=== PATIENT | female | born 1975 | race Caucasian/White ===

== ENCOUNTER → 2016-10-24 | Outpatient (CLI) | payer BC ==
--- NOTE | 2016-10-24 10:28 | MM ---
Reason for exam: screening (asymptomatic). Baseline mammogram. History: Took hormonal contraceptives beginning at age 15. Physical Findings: Nurse did not find any significant physical abnormalities on exam. MG 3D Screening Mammo W/Cad Bilateral CC and MLO view(s) were taken. The breast tissue is extremely dense which could obscure a lesion on mammography. These results were verbally communicated with the patient and result sheet given to the patient on 10/24/16. ASSESSMENT: Benign, BI-RAD 2 RECOMMENDATION: Routine screening mammogram of both breasts in 1 year.
== END | disposition home or self-care (01) ==
LOC: RADMAMWWP 09:27
PROVIDERS: ATTEND Obstetrics & Gynecology
DX: Z12.31 Encounter for screening mammogram for malignant neoplasm of breast (principal)
CPT/HCPCS: 77063; G0202

== ENCOUNTER → 2017-05-16 | Outpatient (CLI) | payer BC ==
[2017-05-16 12:53] LABS: Anion Gap 10 mmol/L; Blood Urea Nitrogen 16 mg/dL (7-17); Carbon Dioxide 23 mmol/L (22-30); Chloride 107 mmol/L (98-107); Glucose 106 mg/dL (74-99); Non-African American GFR(MDRD) >60 (>60 ml/min/1.73 sqM); Potassium 3.9 mmol/L (3.5-5.1); Sodium 140 mmol/L (137-145)
== END | disposition home or self-care (01) ==
LOC: LABWHC1 12:06
PROVIDERS: ATTEND Obstetrics & Gynecology
DX: Z01.812 Encounter for preprocedural laboratory examination (principal); N83.291 Other ovarian cyst, right side; N92.0 Excessive and frequent menstruation with regular cycle; N80.0 Endometriosis of uterus
CPT/HCPCS: 36415; 80051; 82565; 82947; 84520; 86850; 86900; 86901; 87086

== ENCOUNTER → 2017-05-21 | Outpatient (CLI) | payer BC ==
[2017-05-21 13:23] LABS: CH 31.3; CHCM 32.7; HCT 40.7 % (34.0-46.0); MCH 30.9 pg (25.0-35.0); MCV 96.4 fL (80.0-100.0); Mean Platelet Volume 7.3; RBC 4.22 m/uL (3.80-5.40)
== END | disposition home or self-care (01) ==
LOC: LABWHC1 12:24
PROVIDERS: ATTEND Obstetrics & Gynecology
DX: Z01.812 Encounter for preprocedural laboratory examination (principal)
CPT/HCPCS: 36415; 85027

== ENCOUNTER 2017-05-26 05:56 | Day surgery (SDC) | payer BC ==
[2017-05-20 11:13] VITALS: BMI 33.5
--- NOTE | 2017-05-22 15:52 | HP ---
HISTORY AND PHYSICAL REASON FOR ADMISSION: Surgery on Friday, May 26, 2017. HISTORY OF PRESENT ILLNESS: Deanne is a 41-year-old 2, para 2-0-0-2, who presented to the office initially with complaints of irregular cycles, but with very heavy flow including clots. She underwent an ultrasound which demonstrated a complex left ovarian cyst in the range of 2 cm with some papillary projections noted. She did undergo Federica testing which was negative. Followup ultrasound demonstrated it to be persistent in nature. She also complains of mild dysmenorrhea but her largest complaint is of the degree of menorrhagia which interrupts her normal lifestyle. As a result, we discussed different potential options for treatment and, as she wishes to have the cyst removed entirely and has some left-sided pain as well as deal with the ongoing menorrhagia, she has requested definitive therapy with hysterectomy. Examination bears out that she is really only a candidate for an open or Da Chio approach and, as we wish to remove the left ovary/ovarian cyst, Da Chio approach makes further sense. She therefore is booked for the Da Chio robotically assisted laparoscopic hysterectomy with left salpingo-oophorectomy and right salpingectomy as well as diagnostic cystoscopy. PAST MEDICAL HISTORY: No significant medical history. PAST SURGICAL HISTORY: No history of previous surgery. SOFTWARE QUALITY ANALYST HISTORY: 2, para 2-0-0-2 with 2 term vaginal deliveries without complications. Method of contraception is vasectomy. Gynecologic history is unremarkable with no history of any infections to include STDs. FAMILY HISTORY: Noncontributory. SOCIAL HISTORY: The patient is and works as a teacher. She is a nonsmoker and denies any significant alcohol or any other social concerns. CURRENT MEDICATIONS: Include Lysteda 650 mg, 2 tablets 3 times daily on heavy days of cycle (has failed). She also takes a multivitamin daily. ALLERGIES: No known drug allergies. REVIEW OF SYSTEMS: Is confined to history of present illness. PHYSICAL EXAMINATION: Vital signs are stable. The patient is afebrile. In general, this is a well- developed, moderately obese white female in no acute distress. HEENT demonstrates PERRLA, EOMI, her oropharynx is clear. NECK: Supple without adenopathy and the thyroid is normal to palpation. Her heart has a regular rhythm and rate without murmur. Her lungs are clear to auscultation bilaterally in all sexton. Her abdomen is nondistended, has normoactive bowel sounds, soft, nontender, without any palpable masses, hepatosplenomegaly, or hernias. Her extremities are without any cyanosis, clubbing, or significant edema. They are nontender to palpation bilaterally. Pelvic examination demonstrates normal external genitalia and BUS with normal vaginal mucosa and cervix. There is no cervical motion tenderness. The uterus is approximately 5 weeks in size, acutely retroverted, mobile, nontender, and with a possible posterior fundal fibroid. The adnexa were normal. Nontender without mass bilaterally. ASSESSMENT AND PLAN: Menorrhagia, persistent complex left ovarian cyst, and possible adenomyosis: The patient has requested definitive therapy with hysterectomy. As we wish to insure that we are able to remove the left ovarian cyst, we will proceed with the Da Chio robotically assisted laparoscopic hysterectomy with left salpingo-oophorectomy and right salpingectomy to be followed by diagnostic cystoscopy. The risks and complications of this procedure have been thoroughly discussed including the risks for bleeding, bleeding requiring transfusion, infection, and injury to local structures, which specifically include the bowel, bladder, and ureters. I also spent time to specifically discussing the risks unique to Da Chio surgery to include both thermal injury and vaginal cuff dehiscence. She has understood all these concerns and agreed to proceed. We are scheduled for the above procedure on the morning of May 26, 2017. MMODL / IJN: [id number] /
[~2017-05-26 05:56] MED LIST: DEXAMETHASONE SOD PHOSPHATE 10 MG/ML 1 ML VIAL IV ONE; HYDROmorphone 0.5 MG/0.5 ML SYRINGE IVP PRN; LACTATED RINGERS 1,000 ML IV SCH; MIDAZOLAM 2 MG/2 ML VIAL IV PRN; ONDANSETRON 4 MG/2 ML VIAL IVP ONE; SCOPOLAMINE 1.5MG/72HR PATCH TRANSDERM ONE; ceFAZolin IN SWFI 2 GM/20 ML SYRINGE IVP ONE
[2017-05-26] MEDS ORDERED: LIDOCAINE 1% 20 ML VIAL (10MG/ML) FOR IV START INTRADERMA ONE ×2 (06:23→06:32)
[2017-05-26] MEDS ORDERED: BUPIVACAINE (PF) 0.5% 30 ML VIAL SQ ONE (07:07)
[2017-05-26] MEDS ORDERED: GLYCOPYRROLATE 0.2 MG/ML 2 ML VIAL ONE (07:27)
[2017-05-26] MEDS ORDERED: PROPOFOL 10 MG/ML 20 ML VIAL IV ONE (07:27)
[2017-05-26] MEDS ORDERED: LIDOCAINE 1% INJ 10MG/ML (20 ML MDV) ONE (07:27)
[2017-05-26] MEDS ORDERED: HYDROmorphone (PF) 1 MG/ML ONE (07:27)
[2017-05-26] MEDS ORDERED: ROCURONIUM BROMIDE 10 MG/ML 10 ML VIAL IV ONE (07:27)
[2017-05-26] MEDS ORDERED: NEOSTIGMINE 1 MG/ML 10 ML VIAL ONE (07:27)
[2017-05-26] MEDS ORDERED: MIDAZOLAM 2 MG/2 ML VIAL ONE (07:27)
[2017-05-26] MEDS ORDERED: SUCCINYLCHOLINE CHLORIDE 100 MG/5 ML SYR IV ONE (07:27)
[2017-05-26] MEDS ORDERED: KETOROLAC 30 MG/ML 1 ML VIAL ONE (07:27)
[2017-05-26] MEDS ORDERED: fentaNYL (PF) 50 MCG/ML 2 ML AMP ONE (07:27)
[2017-05-26] MEDS ORDERED: ONDANSETRON 4 MG/2 ML VIAL IVP PRN (09:27)
[2017-05-26] MEDS ORDERED: METOCLOPRAMIDE 5 MG/ML 2 ML VIAL IVP PRN (09:27)
[2017-05-26] MEDS ORDERED: Acetaminophen-Codeine 300-30mg TAB PO PRN (09:27)
[2017-05-26] MEDS ORDERED: IBUPROFEN 600 MG TAB PO PRN (09:27)
[2017-05-26] MEDS ORDERED: diphenhydrAMINE 50 MG/ML 1 ML VIAL IVP PRN (09:27)
[2017-05-26] MEDS ORDERED: SIMETHICONE 80 MG CHEWABLE PO PRN (09:27)
--- NOTE | 2017-05-26 09:43 | P.OP ---
Date of Procedure: 05/26/17 Preoperative Diagnosis: #1. Menorrhagia #2. Persistent complex left ovarian cyst #3. Possible adenomyosis Postoperative Diagnosis: Same Procedure(s) Performed: #1. Da Chio robotically assisted laparoscopic hysterectomy #2. Bilateral salpingectomy #3. Left oophorectomy #4. Diagnostic cystoscopy Anesthesia: DILIP Surgeon: Rajesh Langford Health Clinician #1: Rocio Das Estimated Blood Loss (ml): 50 IV fluids (ml): 1,100 Urine output (ml): 300 Pathology: other (Uterus, bilateral fallopian tubes, and left ovary) Condition: stable Disposition: PACU Operative Findings: Preoperative pelvic examination demonstrated a roughly 5-6 week midplane is anteverted normal uterus with normal adnexa bilaterally. Intraoperatively the uterus was larger than anticipated. The bilateral ovaries appeared normal as did the fallopian tubes. The uterus sounded to 10 cm. Following the hysterectomy, the the cystoscopic and the laparoscopic views of the bladder demonstrated no evidence of damage from either side and the bilateral ureteral orifices were seen peristalsing and releasing urine. Description of Procedure: The patient was prepped and draped in usual fashion after general endotracheal anesthesia was administered by the anesthesiologist. A weighted speculum was placed and the anterior lip of the cervix grasped with single-tooth tenaculum. Uterus was sounded to 10 cm allowing for selection of an 8 mm uterine manipulator. The cervix measured to just under 3 cm and a 3 cm Taras cup was selected. Surgical stay sutures were placed from 10:00 to 8:00 and 2:00 to 4: 00 at the cervicovaginal junction into the body of the cervix and tied down. They were then threaded through the Taras cup on the Sola device. The Taras cup and rooming device were then placed the in standard fashion without difficulty and the stay sutures tied down to the Taras cup. A Villalobos catheter was placed and the speculum was removed. Attention was turned to the abdomen where a site was selected approximate 10 cm above the fundus of the uterus and pushed cephalically. The site was approximately 2 cm above the umbilicus in the midline. An 8 mm incision was made in the transverse plane allowing insertion of a 5 mm optical trocar under direct visualization without difficulty. A pneumoperitoneum was established and a site selected approximately 10-12 cm lateral and 3-5 cm the below the optical port on the patient's left side where an 8 mm incision was made in the transverse plane allowing insertion of an 8 mm da Chio trocar under direct visualization without difficulty. The between the 2 was then bisected and a site selected approximately 2-3 cm above the optical port where a roughly 10 mm incision was made in the transverse plane allowing insertion of a 10 mm assistance port under direct vision station without difficulty. A similar da Chio port was placed in the right lower quadrant. There was, on the peritoneal surface, a mild filmy adhesion from the omentum which was left in place. The optical trocar without was removed after placing the scope in a lateral port upon insertion of the da Chio optical port under direct visualization without difficulty. The robot was then brought to the patient and docked standardly. The right arm was the loaded with a monopolar cautery scissors on the left arm was loaded with a [place] bipolar cautery forceps. The power was then applied. I then presented to the console and began the procedure the by removing the right fallopian tube from the overlying ovary. The utero-ovarian ligament was cauterized and cut as well allowing removal of the entire right fallopian tube with the specimen. Cautery and cutting were carried through the round ligament on that side allowing the start of development of the bladder flap. The uterine vessels were noted after some skeletonization and were cauterized with the bipolar cautery. Attention was then turned to the left side where the entire left adnexa was elevated. The infundibulopelvic ligament was cauterized and cut. Serial bites were taken with cautery followed by cutting with the monopolar cautery scissors underneath the fallopian tube to include both the left ovary and tube with the specimen. This was carried through the round ligament as noted on the other side. The bladder flap was then further developed across the midline and the bladder reflected distally. Further skeletonization demonstrated the left side vascular pedicle which was cauterized with the [place] and then cut with the month for cautery scissors. Once the vasculature was controlled, further tension was placed on the bladder flap which was further reflected distally. Uterus was then anteverted and the Taras cup identified and the posterior cul-de- sac. This is opened sharply using the monopolar cautery scissors. Once the cup was identified, the dissection was carried around on the margin of the Taras cup to the uterine vasculature and through it with bipolar cautery used where necessary. Once through the uterine vasculature bilaterally, the uterus was retroverted and the incisions connected on the front side after ensuring that the bladder was well out of the way. The uterus was then removed into the vagina. The monopolar cautery scissors was replaced with a laparoscopic suturing device. The vaginal cuff was closed with a running closure using 0 Stratafix. Release of pressure in the abdomen demonstrated no ongoing bleeding from any site. Thorough suction irrigation was carried out and all sites were noted to be hemostatic. I then returned to the patient removed the Villalobos catheter allowing placement of a diagnostic cystoscope. The bladder was filled with sterile water and the dome of the bladder examined both cystoscopically and laparoscopically with no evidence of any damage or leaking. The bilateral ureteral orifices were seen with peristaltic urine demonstrated from both. The scope was removed and the Villalobos catheter replaced. The robot was undocked and the ports removed. The incisions were closed with interrupted subcuticular stitches of 4-0 Monocryl followed by Steri-Strips with Mastisol. Estimated blood loss for the case was approximately 50 mL. There were no complications. All sponge, instrument, and needle counts were correct. The patient tolerated the procedure well and proceeded to the recovery room in stable condition.
[2017-05-26] MEDS: LACTATED RINGERS 1,000 ML IV SCH ×3 (11:53→22:22)
[2017-05-26] MEDS: KETOROLAC 30 MG/ML 1 ML VIAL IVP PRN ×2 (13:32→22:19)
[2017-05-26] MEDS: Acetaminophen-Codeine 300-30mg TAB PO PRN (18:51)
[2017-05-26] MEDS: SENNOSIDES-DOCUSATE SODIUM 1 EACH TAB PO SCH (22:19)
[2017-05-27] MEDS: Acetaminophen-Codeine 300-30mg TAB PO PRN (01:19)
[2017-05-27 06:49] LABS: Basophils % (A) 0 %; Eosinophils # (A) 0.1 k/uL (0-0.7); Eosinophils % (A) 2 %; HCT 34.6 % (34.0-46.0); HDW 2.55; HGB 11.6 gm/dL (11.4-16.0); Luc # (Auto) 0.06; Luc % (Auto) 1; Lymphocytes # (A) 0.9 k/uL (1.0-4.8); Lymphocytes % (A) 18 %; MCH 31.6 pg (25.0-35.0); MCHC 33.4 g/dL (31.0-37.0); MCV 94.6 fL (80.0-100.0); Mean Platelet Volume 7.5; Monocytes # (A) 0.3 k/uL (0-1.0); Monocytes % (A) 6 %; Neutrophils # (A) 3.8 k/uL (1.3-7.7); Neutrophils % (A) 73 %; RBC 3.66 m/uL (3.80-5.40); RDW 13.5 % (11.5-15.5); WBC 5.3 k/uL (3.8-10.6); WBC (Perox) 5.57
[2017-05-27] MEDS: KETOROLAC 30 MG/ML 1 ML VIAL IVP PRN ×2 (07:15→13:14)
[2017-05-27] MEDS: SENNOSIDES-DOCUSATE SODIUM 1 EACH TAB PO SCH (07:15)
[2017-05-27 08:32] VITALS: BP 124/74; PULSE 70; RESP 19; TEMP 97.2
--- NOTE | 2017-05-27 08:32 | P.DS ---
Providers Expected date of discharge: 05/27/17 Attending physician: Rajesh Langford Primary care physician: Ryan Costa - Discharge Diagnosis(es) (1) Complex cyst of left ovary Current Visit: Yes Status: Acute (2) Menorrhagia Current Visit: Yes Status: Acute Hospital Course: The patient is a 41-year-old 2 para 2 scissors or 2 who presented to the office with a complaint of irregular and heavy cycles. She underwent ultrasound which demonstrated also a complex left ovarian cyst approximately 2 cm with some internal papillary projections. This was followed over the course of 1-2 months and remained persistent. Given both the somewhat concerning appearance of the cyst, although it was small, and her uterine symptoms with heavy and irregular bleeding, she requested definitive therapy with hysterectomy. Her examination made her candidate only for open or da Chio approach. She therefore was taken the operating room for da Chio robotically assisted laparoscopic hysterectomy, bilateral salpingectomy, left oophorectomy, and diagnostic cystoscopy. She underwent these procedures and an uncomplicated fashion. Her postoperative course has been unremarkable vital signs remaining stable and her temperature was afebrile throughout. She had not yet passed flatus on the morning of postoperative day #1 but felt as though she was on the verge of. As result, her diet was advanced to regular for lunch with the anticipation of discharge later in the afternoon. Pain was well controlled and there were no other concerning issues. She was instructed to follow-up in the office in 2 weeks for incision checks and 8 weeks routinely. Discharge instructions included calling for any significantly increased bleeding, fever, abdominal pain, incisional complaints, GI or urinary complaints, or anything else that concerned her. She was additionally instructed to have nothing in the vagina for at least 8 weeks time to include intercourse. She understood her instructions and agrees to follow up as noted above. Discharge medications included a prescription for Tylenol 3, 1-2 by mouth every 6 hours when necessary pain, #20 dispensed with no refills. She additionally was to use any [id number] analgesic pain medications she wished as well as any home medications she might normally take. Discharge hemoglobin and hematocrit were 11.6 and 34.6 respectively. Procedures: #1. Da Chio robotically assisted laparoscopic hysterectomy with bilateral salpingectomy and left oophorectomy #2. Diagnostic cystoscopy Patient Condition at Discharge: Stable Plan - Discharge Summary Discharge Rx Participant: Yes New Discharge Prescriptions: No Action Multivitamins, Thera [Multivitamin (formulary)] 1 tab PO DAILY Discharge Medication List Multivitamins, Thera [Multivitamin (formulary)] 1 tab PO DAILY 05/20/17 [History ] Follow up Appointment(s)/Referral(s): Rajesh Langford MD [STAFF PHYSICIAN] - 2 Weeks Patient Instructions/Handouts: Laparoscopic Hysterectomy (DC) Discharge Disposition: HOME SELF-CARE
== END 2017-05-27 13:35 | disposition home or self-care (01) ==
LOC: OR 05:56 → 6PED 09:45 → OR 05-27 13:35
PROVIDERS: ATTEND Obstetrics & Gynecology
DX: N92.0 Excessive and frequent menstruation with regular cycle (principal); N83.291 Other ovarian cyst, right side; N83.02 Follicular cyst of left ovary; Z79.899 Other long term (current) drug therapy
CPT/HCPCS: 58573; 81025; 85025; 86850; 86900; 86901; 88307; S2900

== ENCOUNTER → 2018-03-14 | Outpatient (CLI) | payer BC ==
--- NOTE | 2018-03-16 13:43 | MM ---
Reason for exam: screening (asymptomatic). Last mammogram was performed 1 year and 5 months ago. History: Took hormonal contraceptives beginning at age 15. Physical Findings: A clinical breast exam by your physician is recommended on an annual basis and results should be correlated with mammographic findings. MG 3D Screening Mammo W/Cad Bilateral CC and MLO view(s) were taken. Prior study comparison: October 24, 2016, bilateral MG 3d screening mammo w/cad. The breast tissue is extremely dense which could obscure a lesion on mammography. Benign calcifications bilaterally. There is chronic nodularity in the left breast. No significant changes when compared with prior studies. ASSESSMENT: Benign, BI-RAD 2 RECOMMENDATION: Routine screening mammogram of both breasts in 1 year.
== END | disposition home or self-care (01) ==
LOC: RADMAMWWP 11:24
PROVIDERS: ATTEND Obstetrics & Gynecology
DX: Z12.31 Encounter for screening mammogram for malignant neoplasm of breast (principal)
CPT/HCPCS: 77063; 77067

== ENCOUNTER → 2019-08-07 | Outpatient (CLI) | payer BC ==
--- NOTE | 2019-08-09 14:33 | MM ---
Reason for exam: screening (asymptomatic). Last mammogram was performed 1 year and 5 months ago. History: Took hormonal contraceptives beginning at age 15. Physical Findings: A clinical breast exam by your physician is recommended on an annual basis and results should be correlated with mammographic findings. MG 3D Screening Mammo W/Cad Bilateral CC and MLO view(s) were taken. Prior study comparison: March 14, 2018, bilateral MG 3d screening mammo w/cad. October 24, 2016, bilateral MG 3d screening mammo w/cad. The breast tissue is heterogeneously dense. This may lower the sensitivity of mammography. Stable benign calcifications. There is no discrete abnormality. No significant changes when compared with prior studies. ASSESSMENT: Benign, BI-RAD 2 RECOMMENDATION: Routine screening mammogram of both breasts in 1 year.
== END | disposition home or self-care (01) ==
LOC: RADMAMWWP 11:31
PROVIDERS: ATTEND Obstetrics & Gynecology
DX: Z12.31 Encounter for screening mammogram for malignant neoplasm of breast (principal)
CPT/HCPCS: 77063; 77067

== ENCOUNTER → 2020-10-23 | Outpatient (CLI) | payer BC ==
--- NOTE | 2020-10-24 09:10 | MM ---
Reason for exam: screening (asymptomatic). Last mammogram was performed 1 year and 3 months ago. History: Took hormonal contraceptives beginning at age 15. Physical Findings: A clinical breast exam by your physician is recommended on an annual basis and results should be correlated with mammographic findings. MG 3D Screening Mammo W/Cad Bilateral CC and MLO view(s) were taken. Prior study comparison: August 07, 2019, bilateral MG 3d screening mammo w/cad. March 14, 2018, bilateral MG 3d screening mammo w/cad. The breast tissue is heterogeneously dense. This may lower the sensitivity of mammography. There are benign appearing round calcifications bilaterally. There is chronic nodularity in the left breast. There is no discrete abnormality. ASSESSMENT: Benign, BI-RAD 2 RECOMMENDATION: Routine screening mammogram of both breasts in 1 year.
== END | disposition home or self-care (01) ==
LOC: RADMAMWWP 09:12
PROVIDERS: ATTEND Obstetrics & Gynecology
DX: Z12.31 Encounter for screening mammogram for malignant neoplasm of breast (principal)
CPT/HCPCS: 77063; 77067

== ENCOUNTER → 2021-11-07 | Outpatient (CLI) | payer BC ==
--- NOTE | 2021-11-07 12:28 | MM ---
Reason for exam: screening (asymptomatic). Last mammogram was performed 1 year ago. History: Took hormonal contraceptives beginning at age 15. Physical Findings: A clinical breast exam by your physician is recommended on an annual basis and results should be correlated with mammographic findings. MG 3D Screening Mammo W/Cad Bilateral CC and MLO view(s) were taken. XCCL view(s) were taken of the left breast. Prior study comparison: October 23, 2020, bilateral MG 3d screening mammo w/cad. August 07, 2019, bilateral MG 3d screening mammo w/cad. The breast tissue is heterogeneously dense. This may lower the sensitivity of mammography. Stable benign calcifications. There is no discrete abnormality. No significant changes when compared with prior studies. ASSESSMENT: Benign, BI-RAD 2 RECOMMENDATION: Routine screening mammogram of both breasts in 1 year.
== END | disposition home or self-care (01) ==
LOC: RADMAMWWP 07:57
PROVIDERS: ATTEND Obstetrics & Gynecology
DX: Z12.31 Encounter for screening mammogram for malignant neoplasm of breast (principal)
CPT/HCPCS: 77063; 77067

== ENCOUNTER → 2022-12-17 | Outpatient (CLI) | payer BC ==
--- NOTE | 2022-12-18 08:49 | MM ---
Reason for Exam: Screening (asymptomatic). Last mammogram was performed 1 year(s) and 1 month(s) ago. Patient History: Menarche at age 12. First Full-Term at age 28. Left ovary removed at age 41. Hysterectomy at age 41. Hormonal Contraceptives, from age 15 until age 27. Risk Values: Yamel 5 year model risk: 1.0%. NCI Lifetime model risk: 10.3%. Prior Study Comparison: 08/07/2019 Bilateral Screening Mammogram, [facility]. 10/23/2020 Bilateral Screening Mammogram, [facility]. 11/07/2021 Bilateral Screening Mammogram, [facility]. Tissue Density: The breast tissue is heterogeneously dense. This may lower the sensitivity of mammography. Findings: Analyzed By CAD. There is no suspicious group of microcalcifications or new suspicious mass in either breast. Overall Assessment: Benign, BI-RAD 2 Management: Screening Mammogram of both breasts in 1 year. . Patient should continue monthly self-breast exams. A clinical breast exam by your physician is recommended on an annual basis. This exam should not preclude additional follow-up of suspicious palpable abnormalities. Note on Yamel scores and lifetime risk: 1. A Yamel score greater than 3% is considered moderate risk. If this is the case, consider specialist referral to assess eligibility for a risk reducing agent. 2. If overall lifetime risk for the development of breast cancer is 20% or higher, the patient may qualify for future screening with alternating mammogram and breast MRI. Electronically signed and approved by: Constantine Mars M.D. Radiologis
== END | disposition home or self-care (01) ==
LOC: RADMAMWWP 07:52
PROVIDERS: ATTEND Obstetrics & Gynecology
DX: Z12.31 Encounter for screening mammogram for malignant neoplasm of breast (principal)
CPT/HCPCS: 77063; 77067

== ENCOUNTER → 2024-03-05 | Outpatient (CLI) | payer BC ==
--- NOTE | 2024-03-09 13:33 | MM ---
Reason for Exam: Screening (asymptomatic). Last mammogram was performed 1 year(s) and 2 month(s) ago. Patient History: Menarche at age 12. First Full-Term at age 28. Left ovary removed at age 41. Hysterectomy at age 41. Hormonal Contraceptives, from age 15 until age 27. Risk Values: Yamel 5 year model risk: 1.0%. NCI Lifetime model risk: 10.2%. Prior Study Comparison: 10/23/2020 Bilateral Screening Mammogram, [facility]. 11/07/2021 Bilateral Screening Mammogram, [facility]. 12/17/2022 Bilateral MG 3D screening mammo w/cad, [facility]. Tissue Density: The breasts are heterogeneously dense, which may obscure small masses. Findings: Analyzed By CAD. Right breast: There is no suspicious group of microcalcifications or new suspicious mass. Benign-appearing calcifications right breast. Left breast: There is no suspicious group of microcalcifications or new suspicious mass. Benign-appearing calcifications left breast. Overall Assessment: Benign, BI-RAD 2 Management: Screening Mammogram of both breasts in [address] [facility] will attempt to contact patient to return for supplemental views and ultrasound if indicated. Patient should continue monthly self-breast exams. A clinical breast exam by your physician is recommended on an annual basis. This exam should not preclude additional follow-up of suspicious palpable abnormalities. Note on Yamel scores and lifetime risk: 1. A Yamel score greater than 3% is considered moderate risk. If this is the case, consider specialist referral to assess eligibility for a risk reducing agent. 2. If overall lifetime risk for the development of breast cancer is 20% or higher, the patient may qualify for future screening with alternating mammogram and breast MRI. Electronically signed and approved by: Karan Díaz DO
== END | disposition home or self-care (01) ==
LOC: RADMAMWWP 07:46
PROVIDERS: ATTEND Obstetrics & Gynecology
DX: Z12.31 Encounter for screening mammogram for malignant neoplasm of breast
CPT/HCPCS: 77063; 77067